=== PATIENT | female | born 1985 | race Caucasian/White ===

== ENCOUNTER 2020-06-27 13:38 | Inpatient (IN) | payer MEDICAID, OTHER ==
--- NOTE | 2020-06-27 14:26 | ED ---
General Adult HPI - General Chief complaint: Psychiatric Symptoms Stated complaint: Depression Time Seen by Provider: 06/27/20 13:49 Source: patient, RN notes reviewed, old records reviewed Mode of arrival: ambulatory Limitations: no limitations - History of Present Illness Initial comments: 34-year-old female presents from outpatient counseling service for evaluation of suicidal ideation and depression. She states she's had thoughts of overdosing on medication. She denies any suicide attempt. Patient is tearful. She has no physical complaints. She states she does have a previous history of mental illness. - Related Data Home Medications Medication Instructions Recorded Confirmed No Known Home Medications 06/27/20 06/27/20 Allergies Allergy/AdvReac Type Severity Reaction Status Date / Time No Known Allergies Allergy Verified 06/27/20 14:57 Review of Systems ROS Statement: Those systems with pertinent positive or pertinent negative responses have been documented in the HPI. ROS Other: All systems not noted in ROS Statement are negative. Past Medical History Past Medical History: Thyroid Disorder History of Any Multi-Drug Resistant Organisms: None Reported Past Surgical History: Section Past Psychological History: ADD/ADHD, Anxiety, Bipolar, PTSD Smoking Status: Vaper Past Alcohol Use History: None Reported Past Drug Use History: Marijuana General Exam Limitations: no limitations General appearance: alert, in no apparent distress, anxious Head exam: Present: atraumatic, normocephalic Eye exam: Present: normal appearance ENT exam: Present: normal exam Neck exam: Present: normal inspection. Absent: tenderness, meningismus Respiratory exam: Present: normal lung sounds bilaterally. Absent: respiratory distress, wheezes Cardiovascular Exam: Present: regular rate, normal rhythm GI/Abdominal exam: Present: soft. Absent: distended, tenderness, guarding Extremities exam: Present: normal capillary refill. Absent: pedal edema Neurological exam: Present: alert, oriented X3, CN II-XII intact. Absent: motor sensory deficit Psychiatric exam: Present: depressed, anxious, suicidal ideation Skin exam: Present: warm, dry, intact. Absent: cyanosis, diaphoretic Course Vital Signs 06/27/20 13:44 Temperature 97.7 F Pulse Rate 82 Respiratory 20 Rate Blood Pressure 119/79 O2 Sat by Pulse 96 Oximetry - Reevaluation(s) Reevaluation #1: 06/27/20 14:25 Patient cleared for EPS evaluation. Medical Decision Making - Medical Decision Making Patient has been medically cleared and evaluated by EPS. She will be admitted to this institution for further psychiatric evaluation and treatment. Disposition Clinical Impression: Depression, Suicidal ideation Disposition: ADMITTED IP TO THIS [facility] Condition: Stable Is patient prescribed a controlled substance at d/c from ED?: No Referrals: Marion Cooper MD [Primary Care Provider] - 1-2 days Decision to Admit Reason: Admit from EC Decision Date: 06/27/20 Decision Time: 15:13
[2020-06-27 16:17] LABS: Amphetamine Screen,Urine Not Detected (NotDetected); Barbiturate Screen,Urine Not Detected (NotDetected); Benzodiazepines Screen,Urine Not Detected (NotDetected); Cocaine Screen,Urine Not Detected (NotDetected); Methadone Screen, Urine Not Detected (NotDetected); Opiate Screen,Urine Not Detected (NotDetected); Oxycodone Screen, Urine Not Detected (NotDetected); Phencyclidine Screen,Urine Not Detected (NotDetected); Tricyclic Antidepressant,Urine Not Detected (NotDetected); Urn Cannabinoid Scrn Detected (NotDetected)
[2020-06-27] MEDS ORDERED: MAG HYDROX/AL HYDROX/SIMETH 30 ML CUP PO PRN (17:42)
[2020-06-27] MEDS ORDERED: MAGNESIUM HYDROXIDE 2,400 MG/10 ML CUP PO PRN (17:42)
[2020-06-27] MEDS ORDERED: HALOPERIDOL LACTATE 5 MG/ML 1 ML VIAL IM PRN (17:43)
[2020-06-27] MEDS: ACETAMINOPHEN TAB 325 MG TAB PO PRN (20:34)
[2020-06-27] MEDS: haloperidoL 1 MG TAB PO PRN (21:49)
[2020-06-28] MEDS: ACETAMINOPHEN TAB 325 MG TAB PO PRN ×2 (09:11→21:01)
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
[2020-06-28] MEDS: ARIPiprazole 2 MG TAB PO SCH (09:49)
[2020-06-28] MEDS: SERTRALINE 50 MG TAB PO SCH (09:49)
[2020-06-28] MEDS: LORazepam 0.5 MG TAB PO PRN ×2 (10:08→21:00)
--- NOTE | 2020-06-28 15:00 | P.CONS ---
History of Present Illness - Reason for Consult Consult date: 06/28/20 medical management - History of Present Illness 34 years female patient of Dr. Cooper with past medical history of hypothyroidism, history of depression, bipolar disorder, anxiety, PTSD, asthma, previous history of suicidal ideation and attempts comes in with complaints of worsening depression, anxiety, auditory hallucination and suicidal ideation. According to the patient she is experiencing depression since the of her child. She endorses restlessness, lack of energy, insomnia, lack of concentration. Patient was seen in the marriage counselor who recommended seeking treatment due to her symptoms. Patient did mention about writing notes and planning to commit suicide by taking Tylenol, Sudafed and other adxy-evy-tmlvort medication. She was found by her with the pills and w as brought to the hospital. According to the patient she has previously attempted suicide when she was 14 years old by taking some pills with alcohol. She was officially diagnosed with bipolar disorder. Patient was on Zoloft and Abilify before but she stopped taking her medication as she was trying to get with her third child. She did not see any psychiatrist or counselor for the past year due to Covid. Patient has tried Wellbutrin in the past with side effects and has tolerated Zoloft and Abilify. Patient is currently breast- feeding with supplementing on formula and was concerned about the impact of medication on her breast feed. Patient has not had her labs drawn for the past few months due to COVID. Patient does complain of dizziness on assessment today. Blood pressure is 98 pulse 73 respiratory rate 17 blood pressure 98/62 saturating at 99% on RA Review of Systems Constitutional: Denies chills, Denies fever, Denies lethargy, Denies malaise, Denies poor appetite, Denies weakness, Denies weight loss Eyes: denies decreased vision, denies diplopia, denies discharge, denies pain Ears: deny: decreased hearing Ears, nose, mouth and throat: Denies dental pain, Denies headache, Denies nasal discharge, Denies nose pain Cardiovascular: Denies chest pain, Denies decreased exercise tolerance, Denies edema, Denies high blood pressure, Denies irregular heart beat, Denies palpitations, Denies paroxysmal nocturnal dyspnea, Denies rapid heart beat, Denies shortness of breath Respiratory: Denies congestion, Denies cough, Denies cough with sputum, Denies dyspnea, Denies home oxygen, Denies wheezing Gastrointestinal: Denies abdominal pain, Denies change in bowel habits, Denies coffee ground emesis, Denies early satiety, Denies excessive gas, Denies heartburn, Denies hematemesis, Denies hematochezia, Denies loss of appetite, Denies nausea, Denies vomiting Genitourinary: Denies dysuria, Denies flank pain, Denies kidney stones, Denies menorrhagia, Denies urgency, Denies urinary frequency Musculoskeletal: Denies gait dysfunction, Denies limitation of motion, Denies morning stiffness, Denies muscle cramps Integumentary: Denies rash, Denies wounds, Denies brittle nails, Denies change in hair/nails, Denies darkening of skin Neurological: Denies balance difficulties, Denies change in speech, Denies double vision, Denies gait dysfunction, Denies loss of vision, Denies motor disturbance, Denies numbness, Denies paralysis, Denies paresthesias, Denies seizures endorses dizziness Psychiatric: Endorses anxiety, depression, hallucinations, suicidal ideation Endocrine: Denies excessive sweating, Denies excessive thirst, Denies high blood sugars, Denies palpitations Hematologic/Lymphatic: Denies easy bruising, Denies lymphadenopathy Past Medical History Past Medical History: Asthma, Fibromyalgia, Thyroid Disorder Additional Past Medical History / Comment(s): Seasonal allergies, sciatica, bulging discs in neck and lower back, tailbone fx at age 22, History of Any Multi-Drug Resistant Organisms: None Reported Past Surgical History: Section Additional Past Surgical History / Comment(s): x3 Past Anesthesia/Blood Transfusion Reactions: No Reported Reaction Past Psychological History: ADD/ADHD, Anxiety, Bipolar, PTSD Smoking Status: Former smoker, Vaper Past Alcohol Use History: Rare Additional Past Alcohol Use History / Comment(s): Patient reported, "I used to be an alcoholic", but drink once in a while now. Past Drug Use History: Marijuana Additional History: Daily marijuana use 3 times a day for her fibromyalgia - Past Family History Mother History Unknown: Yes Medications and Allergies Home Medications Medication Instructions Recorded Confirmed Type No Known Home Medications 06/27/20 06/27/20 History Allergies Allergy/AdvReac Type Severity Reaction Status Date / Time No Known Allergies Allergy Verified 06/27/20 20:57 Physical Exam Vitals: Vital Signs Temp Pulse Resp BP Pulse Ox 06/28/20 06:42 98.0 F 73 17 98/62 99 06/27/20 17:58 97.9 F 76 16 127/69 97 Intake and Output 06/27/20 06/28/20 06/28/20 22:59 06:59 14:59 Other: Weight 110.813 kg - Constitutional General appearance: cooperative, no acute distress, obese - EENT Eyes: anicteric sclerae, PERRLA, normal appearance ENT: hearing grossly normal - Neck Neck: no lymphadenopathy, normal ROM, no other, no rigidity, no stridor, no thyromegaly - Respiratory Respiratory: bilateral: CTA, negative: diminished, dullness, rales, rhonchi - Cardiovascular Rhythm: regular Heart sounds: normal: S1, S2 Abnormal Heart Sounds: no systolic murmur, no diastolic murmur, no rub, no S3 Gallop, no S4 Gallop, no click, no other - Gastrointestinal General gastrointestinal: normal bowel sounds, soft - Integumentary Integumentary: no rash - Neurologic Neurologic: CNII-XII intact - Musculoskeletal Musculoskeletal: gait normal, strength equal bilaterally - Psychiatric Psychiatric: A&O x's 3, appropriate affect Results Labs: Abnormal Lab Results - Last 24 Hours (Table) 06/27/20 Range/Units 15:24 U Marijuana (THC) Screen Detected H (NotDetected) Assessment and Plan Plan: #1 major depressive disorder with psychosis. Patient has history of bipolar disorder diagnosed at the age of 14. Initiated on Zoloft 50 mg with Abilify 1 mg daily. Admitted to inpatient psychiatric unit. Safety precaution. Patient feels better with medication and counseling #2 cannabis use disorder. Patient recommended to stop marijuana use as it is documented to worsen anxiety and contribute to psychosis. #3 history of hypothyroidism. I would recommend checking patient's TSH as some of the symptoms could have worsened due to her recent . Patient may benefit with low-dose of Synthyroid #4 fibromyalgia. Would recommend against use of marijuana for fibromyalgia. 5 Lactating mother. Patient initiated on Zoloft and Abilify. Though no harm to the infant is noted based on human data. Production of the milk might be affected. Would recommend weaning off breast-feeding to help prevent any adverse effect to the . If patient would like to continue breast feeding, behavior should be monitored for increased sleepiness, tiredness, agitation or irritability. 6. Code status full code Thank you for the consult. I'll be happy to assist in patient's medical needs while patient is here
[2020-06-28] MEDS: haloperidoL 1 MG TAB PO PRN (21:00)
[2020-06-29] MEDS: ACETAMINOPHEN TAB 325 MG TAB PO PRN ×3 (05:58→19:39)
[2020-06-29] MEDS: SERTRALINE 50 MG TAB PO SCH (09:21)
[2020-06-29] MEDS: ARIPiprazole 2 MG TAB PO SCH (09:21)
[2020-06-29] MEDS: LORazepam 0.5 MG TAB PO PRN ×2 (10:55→21:17)
--- NOTE | 2020-06-29 12:00 | P.PN ---
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 She reported a marked improvement of mood since admission. She attributes the improvement to the support from her mother and her . He has taken time off work to take care of their children. She denied that she is experienced auditory hallucinations or thought insertion since admission to the unit. She described continued anxiety is not interfering with her functioning. She denied experiencing periods of increased anxiety suggestive of panic attacks. She denied that she has been forced to repeat behaviors that she described during the admission assessment. She talked about 2 doses of Ativan 0.5 mg yesterday for complaints of subjective anxiety. Medical consult appreciated. She complained of breast discharge and requested a "binding". Nursing spoke with the tailings man he recommended ice packs instead. She is attending therapeutic groups and activities. She slept 6 hours last night. Mental status exam: She presented as a casually groomed moderate obese female who was pleasant on approach. She made eye contact and attended to the interview. She had a bright facial expression. She was alert and oriented to person, place and time. She had slight psychomotor retardation but no abnormal involuntary movements. Her gait was slow but steady. Her speech was spontaneous with normal rate, volume and rhythm. Affect was stable and appropriate. She denied current suicidal ideation and wishes. She denied homicidal ideation. She expressed feelings of hopefulness and feels less helpless and overwhelmed. She did not express ideas reference, paranoid ideation or delusions. Her thinking was abstract and associations were coherent, logical and goal directed. She denied hallucinations did not appear to be responding to internal stimuli. Assessment: She is much improved from admission suggesting that the cause of this stress is related to interpersonal issues probably exacerbated by the responsibility of the care of 3 children and being isolated as a result of the pandemic. Plan:Continue inpatient treatment. Safety precautions. Continue Zoloft 50 mg daily and Abilify 1 mg daily and titrated according to clinical response and tolerance. Haldol and/or Ativan for agitation or acute anxiety. Encouraged continued participation in therapeutic groups and activities. Evaluate clinical status response to treatment daily basis.
[2020-06-29] MEDS: haloperidoL 1 MG TAB PO PRN (21:17)
[2020-06-30 06:40] VITALS: RESP 18
[2020-06-30] MEDS: SERTRALINE 50 MG TAB PO SCH (08:12)
[2020-06-30] MEDS: ARIPiprazole 2 MG TAB PO SCH (08:12)
[2020-06-30] MEDS: ACETAMINOPHEN TAB 325 MG TAB PO PRN ×2 (08:33→21:29)
[2020-06-30] MEDS: LORazepam 0.5 MG TAB PO PRN ×3 (10:01→21:34)
--- NOTE | 2020-06-30 10:02 | P.PN ---
Progress Note - Text Progress Note Date: 06/30/20 Interval History: Patient was seen in her bedroom and was directable and agreeable to speak with marketing underwriter in the office. The patient reports that she is feeling slightly better. She is not reporting any suicidal or homicidal ideation, intention, and/or plan. She is denying any auditory or visual hallucinations. She reports no paranoia or delusions. She states that her sleep has improved. She is currently expressing that she is eating well and sleeping well. She has been adherent with her medications and is not reporting any significant side effects at this time. The patient states that the reasons for admission were likely related to her marijuana use. She was counseled at length to avoid marijuana but continues to be somewhat pre-contemplative. Patient states that she wants to switch to edibles only. Mental Status Exam: General Appearance: Patient appears to be stated age is alert, directable, and cooperative. Obese body habitus. Fair hygiene and grooming. Behavior: Patient is calmly seated without any agitated behavior. Normal psychomotor activity. Speech: Patient's speech is fluent and nonpressured. Normal rate, tone, and volume. Mood/Affect: Mood is improving mildly, affect is congruent and euthymic. Suicidality/Homicidality: Patient denies having any suicidal or homicidal ideation intent or plan. Perceptions: Patient denies any visual hallucinations and denies any auditory hallucinations Though content/process: There is no evidence of any delusional thought content and thought process is linear and goal-directed. Memory and concentration: AOX3, grossly intact for the purposes of this session Judgment and insight: Improving mildly Assessment Depressive disorder, unspecified Cannabis use disorder Plan: -Patient continues to meet criteria for inpatient psychiatric admission for symptom stabilization and safety. Patient has signed adult voluntary form and medication consent and was placed in patient's chart. -Medications: Increase Abilify to 10 mg by mouth daily for mood augmentation Continue Zoloft 50 mg daily for depression/anxiety -SW on board for discharge planning. Encouraged the patient to participate in milieu.
[2020-06-30] MEDS: haloperidoL 1 MG TAB PO PRN (21:29)
[2020-07-01 06:21] VITALS: TEMP 97.5
[2020-07-01] MEDS: ACETAMINOPHEN TAB 325 MG TAB PO PRN (08:38)
[2020-07-01] MEDS: SERTRALINE 50 MG TAB PO SCH (08:38)
[2020-07-01] MEDS ORDERED: ARIPiprazole 10 MG TAB PO SCH (09:00)
[2020-07-01] MEDS: LORazepam 0.5 MG TAB PO PRN (09:12)
[2020-07-01 09:14] VITALS: BP 109/72; PULSE 132
--- NOTE | 2020-07-01 11:04 | P.DS ---
Providers Date of admission: 06/27/20 17:33 Expected date of discharge: 07/01/20 Attending physician: Morro Allen MD Consults: 06/27/20 17:42 Consult Physician Routine Consulting Provider: Marion Cooper Consult Reason/Comments: H&P and medical Do you want consulting provider notified?: Yes Primary care physician: Marion Cooper - Discharge Diagnosis(es) (1) Major depressive disorder Current Visit: Yes Status: Acute Priority: High (2) Cannabis abuse Current Visit: Yes Status: Chronic Priority: Medium Hospital Course: Admission HPI: Initial psychiatric evaluation was completed by Dr. Barrera on 06/28/2020 who wrote: "She is a 34-year-old female admitted to psychiatric unit voluntarily with complaints of increasing depression, anxiety, auditory hallucinations and suicidal ideation. I reviewed the medical record and interviewed the patient. Her marital therapist urged her to come to the hospital for treatment of her psychiatric problems. She and her have been meeting with a therapist to "improve communication." During the session yesterday the therapist told her that she could not continue with the therapy until the patient addressed her own problems. She described increasing depression since the of her daughter 9 months ago. She has experienced depression following the of her 2 older children but following this depression has worsened particularly over the last 6 months. She described classic symptoms of depression including restlessness, anhedonia, anergy, fatigue, impaired sleep (with initial and middle insomnia), guilt (over distancing herself from her 3 children) and recurrent suicidal ideation. 2 weeks ago her stopped her from overdosing on medications. This week she became acutely distress when she experienced what appears to be true auditory hallucination. She described a voice that told her to burn down the house. In addition, she described increasing anxiety and fluctuating intensity. She has experienced intrusive thoughts that she did not believe was her own that were command in nature. For example, she had a thought to have her son stab her. She described compulsively repeating acts. She has to count to 49 5 times when she is brushing her teeth. She also has to count 49 when she is washing her hands. She is suspicious of her but did not express organize paranoid delusional beliefs. She described increasing suspicions that her is not at work and "doing something he should not do." To calm her mind she has been calling him at work. She denied experiencing ideas of reference or thought broadcasting. She appears to have heavy marijuana use. She smokes at least 3 times a day. She denied use of other drugs. Her UDS was positive only for marijuana. Her breath alcohol level in the ER was negative." Hospital course: Upon admission to the unit patient was initially presenting as depressed, with psychomotor slowing, and thoughts of suicide. Patient was however directable and agreeable to commence treatment. Patient got along well with other patients on the unit and followed unit protocol. Patient was compliant with the medications and denied any side effects throughout hospital course. Patient was started on a regimen of Zoloft and Abilify which was titrated based on patient response and tolerance of the medication. Over the course the hospitalization, the patient spoke of her stressors and engaged in therapy, both group and individual. The patient was also seen by the medical team for history and physical exam. Throughout the course of the hospitalization, the patient gradually improved in regards to her depressive symptoms, sleep, and tolerance of medications. On the day of discharge, the patient is not reporting any suicidal or homicidal ideation, intention, and/or plan. She is not reporting any auditory or visual hallucinations. She is denying any paranoia or delusions. She has been adherent with her medications and is not reporting any significant side effects. The patient does have significant history of cannabis abuse and was counseled at length on abstaining from all substances including alcohol, cannabis, and other illicit substances. The patient also expresses desire for benzodiazepine medication for anxiety however was instructed on the dangers of benzodiazepine dependence. Patient was counseled on the medications and need for regular compliance and was encouraged to follow-up with her outpatient appointments for mental health and for primary care. Prior to discharge, a family meeting will be arranged by social staff worker to answer any questions and ensure safety. Mental status exam: General Appearance: Patient appears to be stated age is alert, pleasant, and cooperative. Obese body habitus. Fair hygiene and grooming. Behavior: Patient is calmly seated without any agitated behavior. Normal psychomotor activity. Speech: Patient's speech is fluent and nonpressured. Normal rate, tone, and volume. Mood/Affect: Patient reports their mood is "feeling ready to go", affect is congruent and euthymic to bright. Suicidality/Homicidality: Patient denies having any suicidal or homicidal ideation intent or plan. Perceptions: Patient denies any auditory or visual hallucinations. Though content/process: There is no evidence of any delusional thought content and thought process is linear and goal-directed. Memory and concentration: AOX3, grossly intact for the purposes of this session. Can spell "WORLD" backwards correctly. Judgment and insight: Improved Impression: Major depressive disorder Cannabis use disorder Plan: -Continue with discharge today as patient has improved and stabilized psychiatrically and is not currently an imminent threat to herself and/or others. Patient will remain at chronically elevated risk for harm to self and/or others due to her substance use and lack of coping skills. -Continue medications: Abilify 10 mg by mouth daily for mood augmentation/depression Zoloft 50 mg by mouth daily for depression/anxiety -Patient was counseled on the need for medication compliance and appropriate follow-up at mental health and also primary care for medical issues. Patient verbalized understanding and agreed. -Social work to arrange for and conduct family meeting to ensure safety upon discharge and answer any questions/concerns. Social work also to arrange for patients follow up appointments with [facility] for psychiatric care along with follow up with primary care provider. -Patient counseled on abstaining from recreational drugs and marijuana and alcohol. Was informed/educated on the adverse effects on their physical and mental health. Patient verbally agreed and understood. -Patient was instructed to return to the hospital or seek immediate medical care if their psychiatric or medical symptoms do worsen or reoccur. -Psychoeducation and supportive therapy provided to patient. Risks and benefits of pharmacological treatment versus the risks and benefits of nontreatment weight and discussed. Informed consent discussion held. Common side effects of psychotropics discussed such as, but not limited to headache, GI disturbance, sexual dysfunction, movement disorders, sedation, and orthostatic hypotension. Life threatening and blackbox warnings of prescribed medications also discussed. Potential risks of operating a vehicle or heavy machinery discussed with patient at length. Advised on importance of compliance and a reliable and responsible manner. Patient advised to review FDA consumer labeling of all medications prior to taking. Patient verbalized understanding of potential risks, and agrees with current treatment plan. Patient advised to medically contact physician/emergency personnel if any acute changes in condition occur. Vital Signs Temp 97.5 F L 07/01/20 06:14 Pulse 132 H 07/01/20 09:14 Resp 18 06/30/20 06:25 BP 109/72 07/01/20 09:14 Pulse Ox 99 06/28/20 06:42 Laboratory Results TSH 1.540 mIU/L (0.465-4.680) 06/29/20 06:38 Urine HCG, Qual Not Detected (Not Detectd) 06/27/20 19:44 Urine Opiates Screen Not Detected (NotDetected) 06/27/20 15:24 Ur Oxycodone Screen Not Detected (NotDetected) 06/27/20 15:24 Urine Methadone Screen Not Detected (NotDetected) 06/27/20 15:24 Ur Propoxyphene Screen Not Detected (NotDetected) 06/27/20 15:24 Ur Barbiturates Screen Not Detected (NotDetected) 06/27/20 15:24 U Tricyclic Antidepress Not Detected (NotDetected) 06/27/20 15:24 Ur Phencyclidine Scrn Not Detected (NotDetected) 06/27/20 15:24 Ur Amphetamines Screen Not Detected (NotDetected) 06/27/20 15:24 U Methamphetamines Scrn Not Detected (NotDetected) 06/27/20 15:24 U Benzodiazepines Scrn Not Detected (NotDetected) 06/27/20 15:24 Urine Cocaine Screen Not Detected (NotDetected) 06/27/20 15:24 U Marijuana (THC) Screen Detected (NotDetected) H 06/27/20 15:24 Coronavirus (PCR) Not Detected (Not Detectd) 06/27/20 15:54 Allergies Allergy/AdvReac Type Severity Reaction Status Date / Time No Known Allergies Allergy Verified 06/27/20 20:57 Patient Condition at Discharge: Stable Plan - Discharge Summary Discharge Rx Participant: No New Discharge Prescriptions: New ARIPiprazole [Abilify] 10 mg PO DAILY 30 Days tab hydrOXYzine pamoate [Vistaril] 25 mg PO TID PRN 14 Days cap PRN Reason: Anxiety Sertraline [Zoloft] 50 mg PO DAILY 30 Days tab Discharge Medication List ARIPiprazole [Abilify] 10 mg PO DAILY 30 Days tab 07/01/20 [Rx] Sertraline [Zoloft] 50 mg PO DAILY 30 Days tab 07/01/20 [Rx] hydrOXYzine pamoate [Vistaril] 25 mg PO TID PRN 14 Days cap 07/01/20 [Rx] Follow up Appointment(s)/Referral(s): [facility] [Outside] - 07/04/20 10:00 am (w/Eugenie by phone ) Marion Cooper MD [Primary Care Provider] - 1-2 days Patient Instructions/Handouts: Depression (DC) Activity/Diet/Wound Care/Special Instructions: Activity and diet as tolerated. Avoid the use of street drugs and alcohol. Take all medications as prescribed. When you are in need of refills on your medications please contact your medical provider and/or outpatient psychiatrist to have this done. Please go to scheduled outpatient appointment for aftercare treatment. If symptoms return or become worse, call the crisis line at and/or go to the nearest emergency room for evaluation. Discharge Disposition: HOME SELF-CARE
== END 2020-07-01 13:00 | disposition home or self-care (01) | DRG 885 ==
LOC: EC 13:38 → 3MHU 17:33
PROVIDERS: ADMIT Psychiatry & Neurology Psychiatry; ATTEND Psychiatry & Neurology Psychiatry
DX: F32.3 Major depressive disorder, single episode, severe with psychotic features (principal); R45.851 Suicidal ideations; Z68.41 Body mass index [BMI] 40.0-44.9, adult; F60.0 Paranoid personality disorder; F10.21 Alcohol dependence, in remission; F14.21 Cocaine dependence, in remission; F15.11 Other stimulant abuse, in remission; E66.9 Obesity, unspecified; Z20.822 Contact with and (suspected) exposure to COVID-19; F43.10 Post-traumatic stress disorder, unspecified; F90.9 Attention-deficit hyperactivity disorder, unspecified type; E03.9 Hypothyroidism, unspecified; J45.909 Unspecified asthma, uncomplicated; M79.7 Fibromyalgia; F12.10 Cannabis abuse, uncomplicated; Z87.891 Personal history of nicotine dependence; Z91.5 Personal history of self-harm; Z62.810 Personal history of physical and sexual abuse in childhood; Z81.8 Family history of other mental and behavioral disorders
CPT/HCPCS: 80306; 81025; 82075; 84443; 87635; 99285